=== PATIENT | female | born 1990 | race Caucasian/White ===

== ENCOUNTER 2023-03-30 15:34 | Emergency (ER) | payer MEDICAID ==
[~2023-03-30] VITALS: Ht 165.1 cm; Wt 113.0 kg
[2023-03-30 15:52] VITALS: BP 132/92; PULSE 100; RESP 16; TEMP 98.1; O2SAT 97
== END 2023-03-30 21:49 | disposition home or self-care (01) ==
LOC: ER 15:34
DX: F41.9 Anxiety disorder, unspecified (principal); F31.9 Bipolar disorder, unspecified; F20.9 Schizophrenia, unspecified; J45.909 Unspecified asthma, uncomplicated; I10 Essential (primary) hypertension
CPT/HCPCS: 99283

== ENCOUNTER 2024-05-28 05:34 | Emergency (ER) | payer MEDICAID, OTHER ==
[~2024-05-28] VITALS: Ht 165.1 cm; Wt 100.0 kg
[~2024-05-28 05:34] MED LIST: ALBU18HF2 IH; FLUT1DIS3 INH
[2024-05-28 05:37] VITALS: TEMP 36.9; O2SAT 97
[2024-05-28 05:47] VITALS: O2SAT 99
[2024-05-28 07:27] VITALS: BP 134/73; PULSE 102; RESP 18
[2024-05-28] MEDS: KETOROLAC 30MG/ML VIAL IM ONE (07:27)
[2024-05-28] MEDS: ACETAMINOPHEN 500MG TABLET PO ONE (08:30)
== END 2024-05-28 09:53 | disposition home or self-care (01) ==
LOC: ER 05:52
DX: S39.92XA Unspecified injury of lower back, initial encounter (principal); M54.89 Other dorsalgia; I10 Essential (primary) hypertension; J45.909 Unspecified asthma, uncomplicated; M47.814 Spondylosis without myelopathy or radiculopathy, thoracic region; Z79.51 Long term (current) use of inhaled steroids; W22.8XXA Striking against or struck by other objects, initial encounter; X58.XXXA Exposure to other specified factors, initial encounter; Y93.89 Activity, other specified; Y92.89 Other specified places as the place of occurrence of the external cause; Y99.8 Other external cause status
CPT/HCPCS: 72070; 81025; 99283; J1885

== ENCOUNTER 2024-06-05 06:17 | Emergency (ER) | payer MEDICAID ==
[~2024-06-05] VITALS: Ht 162.6 cm; Wt 128.0 kg
[2024-06-05 06:19] VITALS: TEMP 36.7; O2SAT 97
[2024-06-05 06:40] VITALS: BP 112/66; PULSE 82; RESP 16
[2024-06-05] MEDS: ACETAMINOPHEN WITH CODEINE 300/30MG TABLET PO ONE (06:40)
[2024-06-05] MEDS ORDERED: IBUP-2028 PO (07:18)
== END 2024-06-05 08:55 | disposition home or self-care (01) ==
LOC: ER 06:27
DX: M54.50 Low back pain, unspecified (principal); I10 Essential (primary) hypertension; F20.9 Schizophrenia, unspecified; J45.909 Unspecified asthma, uncomplicated; Z79.1 Long term (current) use of non-steroidal anti-inflammatories (NSAID); Z79.51 Long term (current) use of inhaled steroids
CPT/HCPCS: 72070; 99283